=== PATIENT | male | born 1990 | race Caucasian/White ===

== ENCOUNTER 2017-05-05 14:59 | Emergency (ER) | payer SELFPAY ==
[~2017-05-05 14:59] MED LIST: ASPI81TA82 PO; ATEN-100 PO; METH750T2 PO
[2017-05-05 15:01] VITALS: BP 121/73; PULSE 64; RESP 17; TEMP 98.2; O2SAT 98
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
--- NOTE | 2017-05-05 16:27 | PD ---
HPI Chief Complaint: Abdominal Pain Time Seen by Provider: 16:23 Travel History International Travel<30 days: No Contact w/Intl Traveler<30days: No Traveled to known affect area: No History of Present Illness HPI 27-year-old male presents to emergency department with "excruciating abdominal pain". Patient stated history of pancreatitis couple of years ago from taking too much Naprosyn. The patient has had some nausea and lower thoracic back pain consistent with previous episodes of pancreatitis. Patient is requesting something for his pain and nausea. He is concerned and just wants his lipase level checked. Patient denies alcohol or drug abuse. He denies diabetes. He reports his pain is 10/10. He is allergic to avocado and tilapia. PFSH Past Medical History Blood Disorders: No Anxiety: Yes Depression: Yes Heart Rhythm Problems: Yes (SVT) Cancer: No Cardiovascular Problems: Yes (SVT W ABLATION) Chest Pain: Yes Cerebrovascular Accident: No Diabetes: No Diminished Hearing: No Endocrine: No Gastrointestinal Disorders: Yes Genitourinary: No Immune Disorder: No Musculoskeletal: No Neurologic: No Reproductive: No Respiratory: No Immunizations Current: No Myocardial Infarction: Yes (@21) Thyroid Disease: Yes Past Surgical History Abdominal Surgery: Yes (HERNIA ) Appendectomy: Yes Genitourinary Surgery: Yes (RIGHT NEPHRECTOMY CHILD AT 6 MONTHS OF AGE) Pacemaker: No Other Surgery: Yes (kidney (R kidney removed at 6 months) and hernia) Social History Alcohol Use: Yes (SOCIALLY) Tobacco Use: No Substance Use: Yes (MARIJUANA) Allergies-Medications (Allergen,Severity, Reaction): Coded Allergies: avocado (Unverified Allergy, Severe, anaphylaxis, 11/13/16) Uncoded Allergies: tilapia (Allergy, Severe, anaphylaxis, 10/12/14) Reported Meds & Prescriptions Reported Meds & Active Scripts Active Reported Clonazepam 2 Mg Tab 2 Mg PO BID Metoprolol Tartrate 50 Mg Tab 50 Mg PO BID Review of Systems Except as stated in HPI: all other systems reviewed are Neg General / Constitutional: No: Fever Eyes: No: Visual changes HENT: No: Headaches Cardiovascular: No: Chest Pain or Discomfort Respiratory: No: Shortness of Breath Gastrointestinal: Positive: Nausea, Vomiting, Abdominal Pain, Loss of Appetite , No: Constipation, Changes in Bowel Habits, Indigestion, Dysphagia Genitourinary: No: Dysuria Musculoskeletal: No: Pain Skin: No Rash Neurologic: No: Weakness Psychiatric: No: Depression Endocrine: No: Polydipsia Hematologic/Lymphatic: No: Easy Bruising Physical Exam Narrative GENERAL: Patient is resting comfortably on exam table. SKIN: Warm and dry. Normal color. Normal turgor. No diaphoresis HEAD: Atraumatic. Normocephalic. EYES: Pupils equal and round. No scleral icterus. No injection or drainage. ENT: No nasal bleeding or discharge. Mucous membranes pink and moist. Pharynx is clear. Airway is patent. NECK: Trachea midline. Supple and nontender CARDIOVASCULAR: Regular rate and rhythm. RESPIRATORY: No accessory muscle use. Clear to auscultation. Breath sounds equal bilaterally. GASTROINTESTINAL: Abdomen soft, moderate nonspecific upper quadrant tenderness, nondistended. Hepatic and splenic margins not palpable. Moderate CVA tenderness with percussion. MUSCULOSKELETAL: Extremities without clubbing, cyanosis, or edema. No obvious deformities. NEUROLOGICAL: Awake and alert. No obvious cranial nerve deficits. Motor grossly within normal limits. Five out of 5 muscle strength in the arms and legs. Normal speech. PSYCHIATRIC: Appropriate mood and affect; insight and judgment normal. Data Data Last Documented VS Vital Signs Date Time Temp Pulse Resp B/P (MAP) Pulse Ox O2 Delivery O2 Flow Rate FiO2 05/05/17 16:59 72 15 98 Room Air 05/05/17 15:01 98.2 Orders Orders Complete Blood Count With Diff (05/05/17 15:14) Comprehensive Metabolic Panel (05/05/17 15:14) Lipase (05/05/17 15:14) Hand, Complete ([id number]) (05/05/17 ) Iv Access Insert/Monitor (05/05/17 16:30) Ondansetron Inj (Zofran Inj) (05/05/17 16:30) Sodium Chlor 0.9% 1000 Ml Inj (Ns 1000 M (05/05/17 16:30) Sodium Chloride 0.9% Flush (Ns Flush) (05/05/17 16:30) Famotidine Inj (Pepcid Inj) (05/05/17 16:30) Al-Mag Hy-Si 40-40-4 Mg/Ml Liq (Mag-Al P (05/05/17 16:30) Lidocaine 2% Viscous (Xylocaine 2% Visco (05/05/17 16:30) Labs Laboratory Tests Test 05/05/17 16:45 White Blood Count 7.1 TH/MM3 Red Blood Count 4.26 MIL/MM3 Hemoglobin 13.5 GM/DL Hematocrit 39.1 % Mean Corpuscular Volume 91.8 FL Mean Corpuscular Hemoglobin 31.6 PG Mean Corpuscular Hemoglobin Concent 34.5 % Red Cell Distribution Width 13.9 % Platelet Count 240 TH/MM3 Mean Platelet Volume 7.2 FL Neutrophils (%) (Auto) 71.8 % Lymphocytes (%) (Auto) 15.6 % Monocytes (%) (Auto) 11.0 % Eosinophils (%) (Auto) 0.7 % Basophils (%) (Auto) 0.9 % Neutrophils # (Auto) 5.1 TH/MM3 Lymphocytes # (Auto) 1.1 TH/MM3 Monocytes # (Auto) 0.8 TH/MM3 Eosinophils # (Auto) 0.0 TH/MM3 Basophils # (Auto) 0.1 TH/MM3 CBC Comment DIFF FINAL Differential Comment Blood Urea Nitrogen 8 MG/DL Creatinine 0.91 MG/DL Random Glucose 90 MG/DL Total Protein 7.2 GM/DL Albumin 3.5 GM/DL Calcium Level 8.5 MG/DL Alkaline Phosphatase 63 U/L Aspartate Amino Transf (AST/SGOT) 48 U/L Alanine Aminotransferase (ALT/SGPT) 51 U/L Total Bilirubin 0.2 MG/DL Sodium Level 141 MEQ/L Potassium Level 3.7 MEQ/L Chloride Level 104 MEQ/L Carbon Dioxide Level 28.0 MEQ/L Anion Gap 9 MEQ/L Estimat Glomerular Filtration Rate 100 ML/MIN Lipase 125 U/L [facility] Medical Decision Making Medical Screen Exam Complete: Yes Emergency Medical Condition: Yes Medical Record Reviewed: Yes Differential Diagnosis Pancreatitis. Abdominal pain. Malingering. Drug-seeking behavior. Narrative Course Labs ordered in triage including CBC, CMP, and lipase. IV access is obtained and patient was given Zofran 4 mg IV as well as GI cocktail and 1000 mL's normal saline bolus. Labs are all within normal limits with a lipase of 125. Patient to follow-up with a local primary care physician. Diagnosis Primary Impression: Abdominal pain Qualified Codes: R10.84 - Generalized abdominal pain Referrals: Primary Care Physician Patient Instructions: Abdominal Pain (ED), General Instructions Additional Instructions: IV access is obtained and patient was given Zofran 4 mg IV as well as GI cocktail and 1000 mL's normal saline bolus. Labs are all within normal limits with a lipase of 125. Patient to follow-up with a local primary care physician. Med/Other Pt SpecificInfo: No Change to Meds Disposition: 01 DISCHARGE HOME Condition: Stable Anjel Henning May 05, 2017 16:27
[2017-05-05] MEDS ORDERED: SODIUM CHLORIDE 0.9% FLUSH 10 ML FLUSH IV FLUSH PRN (16:30)
[2017-05-05] MEDS ORDERED: FAMOTIDINE 20 MG/2 ML VIAL IV PUSH ONE (16:30)
[2017-05-05] MEDS ORDERED: SODIUM CHLOR 0.9% 1000 ML INJ 1,000 ML IV SCH (16:30)
[2017-05-05] MEDS ORDERED: ALUMINUM/MAGNESIUM/SIMETH 30 ML CUP PO ONE (16:30)
[2017-05-05] MEDS ORDERED: ONDANSETRON HCL 4 MG/2 ML VIAL IVP ONE (16:30)
[2017-05-05] MEDS ORDERED: LIDOCAINE VISCOUS 2% SOLN 15 ML UDC PO ONE (16:30)
[2017-05-05 16:59] VITALS: PULSE 72; RESP 15; O2SAT 98
[2017-05-05] MEDS ORDERED: CLON2TAB PO (17:11)
[2017-05-05] MEDS ORDERED: METO50TA PO (17:11)
[2017-05-05 17:22] LABS: AUTOMATED NEUTROPHIL # 5.1 TH/MM3 (1.8-7.7); BASOPHIL # 0.1 TH/MM3 (0-0.2); BASOPHIL % 0.9 % (0.0-2.0); EOSINOPHIL % 0.7 % (0.0-4.0); HEMATOCRIT 39.1 % (39.0-51.0); HEMOGLOBIN 13.5 GM/DL (13.0-17.0); LYMPH % 15.6 % (9.0-44.0); LYMPHOCYTE # 1.1 TH/MM3 (1.0-4.8); MEAN CELL VOLUME 91.8 FL (80.0-100.0); MEAN CORPUSCULAR HEMOGLOBIN 31.6 PG (27.0-34.0); MEAN CORPUSCULAR HGB CONC 34.5 % (32.0-36.0); MEAN PLATELET VOLUME 7.2 FL (7.0-11.0); MONOCYTE # 0.8 TH/MM3 (0-0.9); NEUT % 71.8 % (16.0-70.0); PLATELET COUNT 240 TH/MM3 (150-450); RED BLOOD COUNT 4.26 MIL/MM3 (4.50-5.90); RED CELL DISTRIBUTION WIDTH 13.9 % (11.6-17.2); WHITE BLOOD COUNT 7.1 TH/MM3 (4.0-11.0)
[2017-05-05 17:34] LABS: ALBUMIN 3.5 GM/DL (3.4-5.0); ALT (GPT) 51 U/L (12-78); AST (GOT) 48 U/L (15-37); BLOOD UREA NITROGEN 8 MG/DL (7-18); CALCIUM 8.5 MG/DL (8.5-10.1); CHLORIDE 104 MEQ/L (98-107); CREATININE 0.91 MG/DL (0.60-1.30); GLOMERULAR FILTRATION RATE 100 ML/MIN (>89); GLUCOSE,RANDOM 90 MG/DL (74-106); SODIUM (NA) 141 MEQ/L (136-145)
[2017-05-05 17:37] LABS: ALKALINE PHOSPHATASE 63 U/L (45-117); TOTAL BILIRUBIN ADULT 0.2 MG/DL (0.2-1.0); TOTAL PROTEIN 7.2 GM/DL (6.4-8.2)
== END 2017-05-05 18:25 | disposition home or self-care (01) ==
LOC: NEPD 14:59
DX: R10.84 Generalized abdominal pain (principal)
CPT/HCPCS: 73130; 80053; 83690; 85025; 96361; 96374; 96375; 99284; J2405; J7030

== ENCOUNTER 2017-05-10 13:34 | Emergency (ER) | payer SELFPAY ==
[~2017-05-10] VITALS: Ht 182.9 cm; Wt 64.0 kg
[~2017-05-10 13:34] MED LIST changes: -ASPI81TA82 PO; -ATEN-100 PO; +CLON2TAB PO; -METH750T2 PO; +METO50TA PO
[2017-05-10 13:37] VITALS: BP 139/94; PULSE 76; RESP 15; TEMP 97.2; O2SAT 99
--- NOTE | 2017-05-10 13:54 | PD ---
HPI Chief Complaint: Medication Refill Request Time Seen by Provider: 13:51 Travel History International Travel<30 days: No Contact w/Intl Traveler<30days: No Traveled to known affect area: No History of Present Illness HPI 27-year-old male presents to the emergency department requesting a dose of metoprolol 50 mg and a dose of clonazepam. He has history of SVT and he has a prescription being filled at the pharmacy for both of his medications. Wants to go into SVT and has not had the medication for 24 hours. He plans on picking up the medication from the pharmacy before 5:00 today, but is concerned of going into SVT. He takes clonazepam because he states they've metoprolol makes him feel anxious. He denies chest pain, shortness of breath, heart palpitations, lightheadedness, dizziness. Duration 24 hours. No known aggravating or relieving factors. Symptoms are mild in severity. His primary care provider is in [place]. Allergies to Toradol, Vistaril, avocado, tilapia. History of SVT and anxiety. Has no other medical complaints. No other modifying factors or associated signs and symptoms. PFSH Past Medical History Blood Disorders: No Anxiety: Yes Depression: Yes Heart Rhythm Problems: Yes (SVT) Cancer: No Cardiovascular Problems: Yes (SVT W ABLATION) Chest Pain: Yes Cerebrovascular Accident: No Diabetes: No Diminished Hearing: No Endocrine: No Gastrointestinal Disorders: Yes Genitourinary: No Immune Disorder: No Musculoskeletal: No Neurologic: No Reproductive: No Respiratory: No Immunizations Current: No Myocardial Infarction: Yes (@21) Thyroid Disease: Yes Tetanus Vaccination: < 5 Years Past Surgical History Abdominal Surgery: Yes (HERNIA ) Appendectomy: Yes Genitourinary Surgery: Yes (RIGHT NEPHRECTOMY CHILD AT 6 MONTHS OF AGE) Pacemaker: No Other Surgery: Yes (HERNIA REPAIR, SURGERY TO DISTEND TESTICLE) Social History Alcohol Use: Yes (SOCIALLY) Tobacco Use: No Substance Use: No Allergies-Medications (Allergen,Severity, Reaction): Coded Allergies: avocado (Unverified Allergy, Severe, anaphylaxis, 11/13/16) Uncoded Allergies: tilapia (Allergy, Severe, anaphylaxis, 10/12/14) Reported Meds & Prescriptions Reported Meds & Active Scripts Active Reported Clonazepam 2 Mg Tab 2 Mg PO BID Metoprolol Tartrate 50 Mg Tab 50 Mg PO BID Review of Systems Except as stated in HPI: all other systems reviewed are Neg Physical Exam Narrative GENERAL: Well-nourished, well-developed male patient, in no acute distress; anxious appearing SKIN: Warm and dry. HEAD: Atraumatic. Normocephalic. EYES: Pupils equal and round. No scleral icterus. No injection or drainage. ENT: Mucosa pink and moist. Airway patent. NECK: Trachea midline. CARDIOVASCULAR: Regular rate and rhythm. No murmur appreciated. RESPIRATORY: No accessory muscle use. Breath sounds clear and equal bilaterally. No retractions or tachypnea. GASTROINTESTINAL: Flat. MUSCULOSKELETAL: No obvious deformities. No clubbing. No cyanosis. No edema. NEUROLOGICAL: Awake and alert. Oriented 3. No obvious cranial nerve deficits. Motor grossly within normal limits. Normal speech. PSYCHIATRIC: Appropriate mood and affect; insight and judgment normal. Data Data Last Documented VS Vital Signs Date Time Temp Pulse Resp B/P (MAP) Pulse Ox O2 Delivery O2 Flow Rate FiO2 05/10/17 14:03 05/10/17 13:37 97.2 76 15 99 Orders Orders Clonazepam (Klonopin) (05/10/17 14:00) Metoprolol Tartrate (Lopressor) (05/10/17 14:00) Ed Discharge Order (05/10/17 13:54) [facility] Medical Decision Making Medical Screen Exam Complete: Yes Emergency Medical Condition: Yes Medical Record Reviewed: Yes Differential Diagnosis Medication refill, encounter for medication administration, SVT, anxiety Narrative Course 27-year-old male with history of SVT presents requesting a one-time dose of metoprolol 50 mg and clonazepam 1 mg. He last took his metoprolol 24 hours ago and is concerned of going into SVT without his medication. He currently has a refill of both medications at a pharmacy and plans on taking them both up today before 5 PM. He denies chest pain, shortness of breath, or palpitations. Heart rate 76 bpm. Patient is anxious appearing. Metoprolol and clonazepam administered in the ER. Instructed patient to follow up with primary care provider. Patient verbalizes understanding and agreement with treatment plan. Patient is medically cleared and stable for discharge. Discussed reasons to return to the emergency department. Patient agrees with treatment plan. The patients vital signs are stable and the patient is stable for outpatient follow- up and treatment. Patient discharged home, stable and in no acute distress. Diagnosis Primary Impression: encounter for medication administration Referrals: Primary Care Physician Patient Instructions: General Instructions, Medication Refill, ED Additional Instructions: Continue medications as prescribed Follow-up with primary care provider Return to the emergency department immediately with worsening of symptoms Med/Other Pt SpecificInfo: No Change to Meds, No Meds Exist/No RX given Disposition: 01 DISCHARGE HOME Condition: Stable Diana Oliveira May 10, 2017 13:54
[2017-05-10] MEDS ORDERED: METOPROLOL TARTRATE 50 MG TAB PO ONE (14:00)
[2017-05-10] MEDS ORDERED: clonazePAM 1 MG TAB PO ONE (14:00)
== END 2017-05-10 14:17 | disposition home or self-care (01) ==
LOC: NEPD 13:34
DX: I47.1 Supraventricular tachycardia (principal); F41.8 Other specified anxiety disorders; I25.2 Old myocardial infarction
CPT/HCPCS: 99281

== ENCOUNTER 2017-09-23 13:36 | Emergency (ER) | payer SELFPAY ==
[~2017-09-23] VITALS: Ht 180.3 cm; Wt 64.0 kg
[2017-09-23 13:42] VITALS: BP 149/64; PULSE 74; RESP 18; TEMP 98.1; O2SAT 99
[2017-09-23] MEDS ORDERED: SODIUM CHLORIDE 0.9% FLUSH 10 ML FLUSH IVF PRN (16:30)
--- NOTE | 2017-09-23 16:46 | RADRPT ---
EXAM DATE: 09/23/2017 4:39 PM EDT AGE/SEX: 27 years / Male INDICATIONS: Chest pressure since last night. CLINICAL DATA: This is the patient's initial encounter. Patient reports that signs and symptoms have been present for 2 days and indicates a pain score of 6/10. MEDICAL/SURGICAL HISTORY: . Cardiac disorder, SVT. . Cardiac ablasion. Hernia repair. Right ne phrectomy. ORIF right ankle. COMPARISON: [facility], CHEST PA & LAT, 11/11/2014. . FINDINGS: PA and lateral views of the chest demonstrate the lungs to be symmetrically aerated without evidence of mass, infiltrate or effusion. The cardiomediastinal contours are unremarkable. Osseous structures are intact. CONCLUSION: 1. No acute cardiopulmonary disease. Electronically signed by: Bear Thompson MD 09/23/2017 4:44 PM EDT
[2017-09-23 17:01] LABS: AUTOMATED NEUTROPHIL # 5.7 TH/MM3 (1.8-7.7); BASOPHIL % 0.4 % (0.0-2.0); EOSINOPHIL # 0.1 TH/MM3 (0-0.4); EOSINOPHIL % 0.9 % (0.0-4.0); HEMATOCRIT 41.6 % (39.0-51.0); HEMOGLOBIN 13.9 GM/DL (13.0-17.0); LYMPH % 18.3 % (9.0-44.0); LYMPHOCYTE # 1.5 TH/MM3 (1.0-4.8); MEAN CELL VOLUME 92.5 FL (80.0-100.0); MEAN CORPUSCULAR HGB CONC 33.5 % (32.0-36.0); MEAN PLATELET VOLUME 7.5 FL (7.0-11.0); MONO % 9.7 % (0.0-8.0); MONOCYTE # 0.8 TH/MM3 (0-0.9); NEUT % 70.7 % (16.0-70.0); PLATELET COUNT 265 TH/MM3 (150-450); RED CELL DISTRIBUTION WIDTH 14.8 % (11.6-17.2)
[2017-09-23] MEDS ORDERED: SODIUM CHLOR 0.9% 1000 ML INJ 1,000 ML IV ONE (17:15)
[2017-09-23 17:25] LABS: BICARBONATE 25.7 MEQ/L (21.0-32.0); BLOOD UREA NITROGEN 10 MG/DL (7-18); CALCIUM 9.1 MG/DL (8.5-10.1); CHLORIDE 106 MEQ/L (98-107); CREATININE 0.89 MG/DL (0.60-1.30); GLOMERULAR FILTRATION RATE 103 ML/MIN (>89); GLUCOSE,RANDOM 101 MG/DL (74-106); MAGNESIUM 2.1 MG/DL (1.5-2.5); SODIUM (NA) 140 MEQ/L (136-145)
[2017-09-23 17:31] LABS: TROPONIN I LESS THAN 0.02 NG/ML (0.02-0.05)
--- NOTE | 2017-09-23 17:44 | PD ---
HPI Chief Complaint: Chest Pain Time Seen by Provider: 16:21 Travel History International Travel<30 days: No Contact w/Intl Traveler<30days: No Traveled to known affect area: No History of Present Illness HPI 27 YO M with PMH of SVT presents to the ED for evaluation of palpitations and elevated heart rate. Onset this morning upon waking. He states that he felt that his heart was pounding, but the rate felt regular. He denies associated chest pain, dizziness, SOB, N/V. Patient states that he took a metoprolol and symptoms gradually subsided. He states that he felt as if " I was about to go into SVT" throughout the course of the day. He was able to go about his normal activities. The patient states that he lives part-time in [place]. He states that he has plenty of metoprolol and Klonopin. He states that he just wanted to get checked out and make sure everything was okay. PFSH Past Medical History Blood Disorders: No Anxiety: Yes Depression: Yes Heart Rhythm Problems: Yes (SVT) Cancer: No Cardiovascular Problems: Yes (SVT W ABLATION) Chest Pain: Yes Cerebrovascular Accident: No Diabetes: No Diminished Hearing: No Endocrine: No Gastrointestinal Disorders: Yes Genitourinary: No Immune Disorder: No Musculoskeletal: No Neurologic: No Reproductive: No Respiratory: No Immunizations Current: No Myocardial Infarction: Yes (@21) Thyroid Disease: Yes Tetanus Vaccination: < 5 Years Influenza Vaccination: No Past Surgical History Abdominal Surgery: Yes (HERNIA ) Appendectomy: Yes Cardiac Surgery: Yes (ablation) Genitourinary Surgery: Yes (RIGHT NEPHRECTOMY CHILD AT 6 MONTHS OF AGE) Pacemaker: No Other Surgery: Yes (HERNIA REPAIR, SURGERY TO DISTEND TESTICLE) Social History Alcohol Use: Yes (SOCIALLY) Tobacco Use: No Substance Use: No Allergies-Medications (Allergen,Severity, Reaction): Coded Allergies: avocado (Unverified Allergy, Severe, anaphylaxis, 09/23/17) gabapentin (Verified Allergy, Severe, 09/23/17) goes into svt hydroxyzine (Verified Allergy, Severe, 09/23/17) goes into svt ketorolac (Verified Allergy, Severe, 09/23/17) goes into svt metoclopramide (Verified Allergy, Severe, 09/23/17) goes into svt Uncoded Allergies: tilapia (Allergy, Severe, anaphylaxis, 10/12/14) Reported Meds & Prescriptions Reported Meds & Active Scripts Active Reported Clonazepam 2 Mg Tab 2 Mg PO BID Metoprolol Tartrate 50 Mg Tab 50 Mg PO BID Review of Systems Except as stated in HPI: all other systems reviewed are Neg Physical Exam Narrative GENERAL: Well-nourished, well-developed anxious white male no acute distress. SKIN: Focused skin assessment warm/dry. HEAD: Normocephalic. EYES: No scleral icterus. No injection or drainage. Pupils dilated bilaterally. NECK: Supple, trachea midline. No JVD or lymphadenopathy. CARDIOVASCULAR: Regular rate and rhythm without murmurs, gallops, or rubs. RESPIRATORY: Breath sounds clear and equal bilaterally. No accessory muscle use. GASTROINTESTINAL: Abdomen soft, non-tender, nondistended. Active bowel sounds. MUSCULOSKELETAL: No cyanosis, or edema. BACK: Nontender without obvious deformity. No CVA tenderness. Data Data Last Documented VS Vital Signs Date Time Temp Pulse Resp B/P (MAP) Pulse Ox O2 Delivery O2 Flow Rate FiO2 09/23/17 18:45 09/23/17 18:45 75 20 99 Room Air 09/23/17 13:42 98.1 Orders Orders Electrocardiogram (09/23/17 ) Basic Metabolic Panel (Bmp) (09/23/17 16:21) Ckmb (Isoenzyme) Profile (09/23/17 16:21) Complete Blood Count With Diff (09/23/17 16:21) Magnesium (Mg) (09/23/17 16:21) Prothrombin Time / Inr (Pt) (09/23/17 16:21) Act Partial Throm Time (Ptt) (09/23/17 16:21) Troponin I (09/23/17 16:21) Ecg Monitoring (09/23/17 16:21) Bilateral Bp Monitoring (09/23/17 16:21) Iv Access Insert/Monitor (09/23/17 16:21) Oximetry (09/23/17 16:21) Sodium Chloride 0.9% Flush (Ns Flush) (09/23/17 16:30) Chest, Pa & Lat (09/23/17 16:21) Sodium Chlor 0.9% 1000 Ml Inj (Ns 1000 M (09/23/17 17:15) Drug Screen, Random Urine (09/23/17 17:11) Alcohol (Ethanol) (09/23/17 17:11) CKMB (09/23/17 16:45) CKMB% (09/23/17 16:45) Troponin I (09/23/17 18:03) Clonazepam (Klonopin) (09/23/17 18:45) Metoprolol Tartrate (Lopressor) (09/23/17 18:45) Ed Discharge Order (09/23/17 18:38) Electrocardiogram (09/23/17 18:11) Labs Laboratory Tests Test 09/23/17 16:45 09/23/17 18:10 White Blood Count 8.0 TH/MM3 Red Blood Count 4.50 MIL/MM3 Hemoglobin 13.9 GM/DL Hematocrit 41.6 % Mean Corpuscular Volume 92.5 FL Mean Corpuscular Hemoglobin 31.0 PG Mean Corpuscular Hemoglobin Concent 33.5 % Red Cell Distribution Width 14.8 % Platelet Count 265 TH/MM3 Mean Platelet Volume 7.5 FL Neutrophils (%) (Auto) 70.7 % Lymphocytes (%) (Auto) 18.3 % Monocytes (%) (Auto) 9.7 % Eosinophils (%) (Auto) 0.9 % Basophils (%) (Auto) 0.4 % Neutrophils # (Auto) 5.7 TH/MM3 Lymphocytes # (Auto) 1.5 TH/MM3 Monocytes # (Auto) 0.8 TH/MM3 Eosinophils # (Auto) 0.1 TH/MM3 Basophils # (Auto) 0.0 TH/MM3 CBC Comment DIFF FINAL Differential Comment Prothrombin Time 10.0 SEC Prothromb Time International Ratio 1.0 RATIO Activated Partial Thromboplast Time 27.5 SEC Blood Urea Nitrogen 10 MG/DL Creatinine 0.89 MG/DL Random Glucose 101 MG/DL Calcium Level 9.1 MG/DL Magnesium Level 2.1 MG/DL Sodium Level 140 MEQ/L Potassium Level 3.7 MEQ/L Chloride Level 106 MEQ/L Carbon Dioxide Level 25.7 MEQ/L Anion Gap 8 MEQ/L Estimat Glomerular Filtration Rate 103 ML/MIN Total Creatine Kinase 131 U/L Creatine Kinase MB 1.0 NG/ML Troponin I LESS THAN 0.02 NG/ML LESS THAN 0.02 NG/ML Ethyl Alcohol Level LESS THAN 3 MG/DL MDM Medical Decision Making Medical Screen Exam Complete: Yes Emergency Medical Condition: Yes Differential Diagnosis Dysrhythmia versus anxiety versus chest pain versus ACS versus other Narrative Course 27 YO M with PMH of SVT presents to the ED for evaluation of palpitations and elevated heart rate. Onset this morning upon waking. He states that he felt that his heart was pounding, but the rate felt regular. He denies associated chest pain, dizziness, SOB, N/V. Patient states that he took a metoprolol and symptoms gradually subsided. He states that he felt as if " I was about to go into SVT" throughout the course of the day. He was able to go about his normal activities. Vitals reviewed. Physical exam reassuring. IV was established. Patient was administered 1 L normal saline. EKG rate 61, sinus rhythm with short IL interval. IL interval 118, QRS 90, QTc 367 ms. Normal axis. No acute ST changes. Reviewed by Dr. Batista. Repeat EKG rate 55, sinus bradycardia with short IL interval. IL interval 110, QRS 94, QTc 397 ms. Normal axis. No acute ST changes. Reviewed by Dr. Garcia. CXR: No acute cardiopulmonary disease. Cardiac enzymes negative 2. No concerning abnormalities of the CBC, coags, CMP Alcohol less than 3. I discussed the results of the workup with the patient. He is reassured by the evaluation. He was administered his evening doses of medications. He is instructed to follow-up with his primary care provider. He is stable and discharged home. Diagnosis Primary Impression: Intermittent palpitations Referrals: Primary Care Physician Additional Instructions: Rest, hydrate. Resume at home medications as previously prescribed. Follow-up with your primary care provider. Return to the ED for worsening symptoms or any urgent or emergent medical condition. Disposition: 01 DISCHARGE HOME Condition: Stable Louisa Chauhan Sep 23, 2017 17:43
[2017-09-23 18:45] VITALS: BP 116/65; PULSE 75; RESP 20; O2SAT 99
[2017-09-23] MEDS ORDERED: clonazePAM 1 MG TAB PO ONE (18:45)
[2017-09-23] MEDS ORDERED: METOPROLOL TARTRATE 50 MG TAB PO ONE (18:45)
--- NOTE | 2017-09-24 21:04 | EKG ---
Date Performed: 09/23/2017 Time Performed: 18:11:40 PTAGE: 27 years EKG: SINUS BRADYCARDIA WITH SHORT ID INTERVAL BORDERLINE ECG PREVIOUS TRACING : 09/23/2017 13.50 Since the previous tracing, no significant change noted DOCTOR: Judith Pro Interpretating Date/Time 09/24/2017 21:04:00
--- NOTE | 2017-09-24 21:35 | EKG ---
Date Performed: 09/23/2017 Time Performed: 13:50:17 PTAGE: 27 years EKG: Sinus rhythm WITH SHORT [place] INTERVAL BORDERLINE ECG PREVIOUS TRACING : 07/18/2015 15.49 Since the previous tracing, no significant change noted DOCTOR: Judith Pro Interpretating Date/Time 09/24/2017 21:34:26
== END 2017-09-23 18:59 | disposition home or self-care (01) ==
LOC: NEPD 13:36
DX: R00.2 Palpitations (principal); R00.0 Tachycardia, unspecified; R94.31 Abnormal electrocardiogram [ECG] [EKG]; E07.9 Disorder of thyroid, unspecified; F41.8 Other specified anxiety disorders; I25.2 Old myocardial infarction; Z79.899 Other long term (current) drug therapy; Z86.79 Personal history of other diseases of the circulatory system; Z87.19 Personal history of other diseases of the digestive system
CPT/HCPCS: 71046; 80048; 80307; 82550; 82552; 83735; 84484; 85025; 85610; 85730; 93005; 96360; 99285; J7030